=== PATIENT | male | born 1955 ===

== ENCOUNTER → 2018-08-07 20:52 | Outpatient (REF) | payer SELFPAY ==
[2018-08-07 21:11] LABS: Add Manual Diff / Slide Review NO; Basophils Percent Auto 1.1 % (0-2); Eosinophils Percent Auto 5.5 % (2-4); Hematocrit 44.5 % (41-53); Hemoglobin 14.8 g/dL (13.5-17.5); Lymphocytes Percent Auto 22.9 % (25-40); Mean Corpuscular HGB Conc 33.3 % (30-36); Mean Corpuscular Hemoglobin 29.1 PG (26-34); Mean Corpuscular Volume 87.2 fL (80-100); Monocytes Percent Auto 9.2 % (3-14); Neutrophils Absolute Auto 3000 /uL (3000-5900); Neutrophils Percent Auto 61.3 % (50-75); Platelet Count 232 X10^3/uL (150-400); Red Cell Distribution Width 13.8 % (11.6-14.8)
[2018-08-09 16:07] LABS: Estradiol 35 pg/mL (< 40)
[2018-08-09 18:24] LABS: Sex Hormone Binding Globulin 43 nmol/L (22-77)
[2018-08-10 14:04] LABS: PSA Total 0.33 ng/mL (< 4.01)
[2018-08-11 15:22] LABS: Testosterone Free 67.8 pg/mL (35.0-155.0); Testosterone Total 579 ng/dL (250-1100)
== END ==
LOC: LAB 20:52
PROVIDERS: Visit Provider Naturopath
DX: E29.1 Testicular hypofunction (principal)
CPT/HCPCS: 82670; 84153; 84154; 84270; 84402; 84403; 85025